=== PATIENT | female | born 1990 | race Two or more races ===

== ENCOUNTER 2018-10-12 20:53 | Emergency (ER) | payer OTHER ==
[~2018-10-12] VITALS: Ht 165.1 cm; Wt 63.5 kg
[2018-10-12 21:28] LABS: BILIRUBIN,URINE NEGATIVE (NEG); CLARITY,URINE CLEAR; COLOR,URINE YELLOW; NITRITE,URINE NEGATIVE (NEG); PROTEIN,URINE NEGATIVE (NEG-TRACE); UROBILINOGEN,URINE 0.2 mg/dL (0.2 mg/dL)
[2018-10-12 21:34] LABS: BASO % 1 % (0-3); EOS # 0.1 x10^3/uL (0.0-0.7); EOS % 1 % (0-3); HEMATOCRIT 37.4 % (36.0-47.0); HEMOGLOBIN 12.5 g/dL (12.0-15.5); LYMPH % 38 % (24-48); MEAN CORPUSCULAR HEMOGLOBIN 25 pg (25-35); MEAN CORPUSCULAR HGB CONC 34 g/dL (31-37); MEAN CORPUSCULAR VOLUME 73 fL (79-100); MONO # 0.5 x10^3/uL (0.0-1.1); MONO % 6 % (0-9); NEUT # 4.2 x10^3/uL (1.8-7.7); NEUT % 54 % (31-73); PLATELET COUNT 277 x10^3/uL (140-400); RED CELL DISTRIBUTION WIDTH 14.8 % (11.5-14.5); WHITE BLOOD COUNT 7.9 x10^3/uL (4.0-11.0)
[2018-10-12 21:34] LABS: BACTERIA,URINE MODERATE /HPF (0-FEW); RBC,URINE 0 /HPF (0-2); SQUAMOUS EPITHELIAL CELL,UR MOD /LPF
[2018-10-12 21:43] LABS: CALCIUM 9.1 mg/dL (8.5-10.1); CREATININE 0.9 mg/dL (0.6-1.0); GFR 74.6; POTASSIUM 3.7 mmol/L (3.5-5.1)
[2018-10-12 21:48] LABS: ALBUMIN 3.8 g/dL (3.4-5.0); ALBUMIN/GLOBULIN RATIO 0.9 (1.0-1.7); TOTAL BILIRUBIN 0.2 mg/dL (0.2-1.0); TOTAL PROTEIN 7.9 g/dL (6.4-8.2)
--- NOTE | 2018-10-12 22:35 | RAD ---
INDICATION: Facial numbness COMPARISON: MRI from April 24, 2015 TECHNIQUE: Axial CT images obtained through the head without intravenous contrast. One or more of the following individualized dose reduction techniques were utilized for this examination: 1. Automated exposure control; 2. Adjustment of the mA and/or kV according to patient size; 3. Use of iterative reconstruction technique. FINDINGS: No intracranial hemorrhage. No midline shift. Basal cisterns patent. Ventricles and sulci are unremarkable. No acute osseous abnormality. Orbits and paranasal sinuses unremarkable. IMPRESSION: 1. No acute intracranial hemorrhage. Electronically signed by: Braden Wade MD (10/12/2018 10:31 PM) [facility]
--- NOTE | 2018-10-12 22:52 | PHYS DOC ---
Past Medical History Past Medical History: Other Additional Past Medical Histor: ENDOMETRIOSIS Past Surgical History: Other Additional Past Surgical Histo: LAP SX FOR ENDOMETRIOSIS Alcohol Use: None Drug Use: None Adult General Chief Complaint Chief Complaint: NEURO SYMPTOMS/DEFICITS [facility] Patient is a 28-year-old female who presents with complaint of bilateral facial numbness and left arm numbness. Patient states that initially she had noticed some numbness to the left side of her face earlier this morning and then noted that the numbness that spread to the right side of her face as well. She later noticed numbness in her left arm and that it felt heavy. She states that at that time she called her primary care provider and he told her to come into the emergency room. Patient does indicate that she has had a history of neurological complaints including numbness in her toes and in the fingers. She states that she did have history of pain in her neck and thought that maybe she had injured her neck at some point. She denies any visual changes. She does state that she has had some intermittent severe migraines.[] Review of Systems Review of Systems Constitutional: Denies fever or chills [] Eyes: Denies change in visual acuity, redness, or eye pain [] Respiratory: Denies cough or shortness of breath [] Cardiovascular: No additional information not addressed in HPI [] GI: Denies abdominal pain, nausea, vomiting or diarrhea [] Integument: Denies rash or skin lesions [] Neurologic: Complains of headache without focal weakness. Patient does report sensory changes [] All other systems were reviewed and found to be within normal limits, except as documented in this note. Allergies Allergies Allergies Coded Allergies Type Severity Reaction Last Updated Verified codeine Allergy Intermediate RASH 08/23/15 Yes Physical Exam Physical Exam Constitutional: Well developed, well nourished, no acute distress, non-toxic appearance. [] HENT: Normocephalic, atraumatic, bilateral external ears normal, oropharynx moist, no oral exudates, nose normal. [] Eyes: PERRLA, EOMI, conjunctiva normal, no discharge. [] Neck: Normal range of motion, no tenderness, supple, no stridor. [] Cardiovascular: Regular rate and rhythm[] Lungs & Thorax: Bilateral breath sounds clear to auscultation [] Abdomen: Bowel sounds normal, soft, no tenderness. [] Skin: Warm, dry, no erythema, no rash. [] Extremities: No tenderness, no cyanosis, no clubbing, ROM intact, no edema. [] Neurologic: Alert and oriented X 3, cranial nerves II through XII are intact normal motor function. There is loss of fine touch to both sides of face with sparing of the forehead along with left arm. No pronator drift is noted on exam. [] Current Patient Data Lab Values Laboratory Tests Test 10/12/18 21:00 10/12/18 21:04 10/12/18 21:30 Urine Collection Type Unknown Urine Color Yellow Urine Clarity Clear Urine pH 6.0 Urine Specific [place] 1.025 Urine Protein Negative mg/dL (NEG-TRACE) Urine Glucose (UA) Negative mg/dL (NEG) Urine Ketones (Stick) Negative mg/dL (NEG) Urine Blood Negative (NEG) Urine Nitrite Negative (NEG) Urine Bilirubin Negative (NEG) Urine Urobilinogen Dipstick 0.2 mg/dL (0.2 mg/dL) Urine Leukocyte Esterase Negative (NEG) Urine RBC 0 /HPF (0-2) Urine WBC 1-4 /HPF (0-4) Urine Squamous Epithelial Cells Mod /LPF Urine Bacteria Moderate /HPF (0-FEW) Urine Mucus Mod /LPF POC Urine HCG, Qualitative Hcg negative (Negative) White Blood Count 7.9 x10^3/uL (4.0-11.0) Red Blood Count 5.10 x10^6/uL (3.50-5.40) Hemoglobin 12.5 g/dL (12.0-15.5) Hematocrit 37.4 % (36.0-47.0) Mean Corpuscular Volume 73 fL (79-100) L Mean Corpuscular Hemoglobin 25 pg (25-35) Mean Corpuscular Hemoglobin Concent 34 g/dL (31-37) Red Cell Distribution Width 14.8 % (11.5-14.5) H Platelet Count 277 x10^3/uL (140-400) Neutrophils (%) (Auto) 54 % (31-73) Lymphocytes (%) (Auto) 38 % (24-48) Monocytes (%) (Auto) 6 % (0-9) Eosinophils (%) (Auto) 1 % (0-3) Basophils (%) (Auto) 1 % (0-3) Neutrophils # (Auto) 4.2 x10^3/uL (1.8-7.7) Lymphocytes # (Auto) 3.0 x10^3/uL (1.0-4.8) Monocytes # (Auto) 0.5 x10^3/uL (0.0-1.1) Eosinophils # (Auto) 0.1 x10^3/uL (0.0-0.7) Basophils # (Auto) 0.0 x10^3/uL (0.0-0.2) Sodium Level 141 mmol/L (136-145) Potassium Level 3.7 mmol/L (3.5-5.1) Chloride Level 104 mmol/L (98-107) Carbon Dioxide Level 27 mmol/L (21-32) Anion Gap 10 (6-14) Blood Urea Nitrogen 10 mg/dL (7-20) Creatinine 0.9 mg/dL (0.6-1.0) Estimated GFR (Cockcroft-Gault) 74.6 BUN/Creatinine Ratio 11 (6-20) Glucose Level 96 mg/dL (70-99) Calcium Level 9.1 mg/dL (8.5-10.1) Magnesium Level 2.0 mg/dL (1.8-2.4) Total Bilirubin 0.2 mg/dL (0.2-1.0) Aspartate Amino Transferase (AST) 13 U/L (15-37) L Alanine Aminotransferase (ALT) 24 U/L (14-59) Alkaline Phosphatase 83 U/L (46-116) Total Protein 7.9 g/dL (6.4-8.2) Albumin 3.8 g/dL (3.4-5.0) Albumin/Globulin Ratio 0.9 (1.0-1.7) L Thyroid Stimulating Hormone (TSH) 1.844 uIU/mL (0.358-3.74) Laboratory Tests 10/12/18 21:30 Laboratory Tests 10/12/18 21:30 EKG EKG [] Radiology/Procedures Radiology/Procedures [] Impressions: PROCEDURE: CT HEAD WO CONTRAST INDICATION: Facial numbness COMPARISON: MRI from April 24, 2015 TECHNIQUE: Axial CT images obtained through the head without intravenous contrast. One or more of the following individualized dose reduction techniques were utilized for this examination: 1. Automated exposure control; 2. Adjustment of the mA and/or kV according to patient size; 3. Use of iterative reconstruction technique. FINDINGS: No intracranial hemorrhage. No midline shift. Basal cisterns patent. Ventricles and sulci are unremarkable. No acute osseous abnormality. Orbits and paranasal sinuses unremarkable. IMPRESSION: 1. No acute intracranial hemorrhage. Electronically signed by: Braden Wade MD (10/12/2018 10:31 PM) [facility] Course & Med Decision Making Course & Med Decision Making Pertinent Labs and Imaging studies reviewed. (See chart for details) [] Dragon Disclaimer Dragon Disclaimer This electronic medical record was generated, in whole or in part, using a voice recognition dictation system. Departure Departure Impression: Primary Impression: Paresthesia Additional Impression: Facial numbness Disposition: 01 HOME, SELF-CARE Condition: STABLE Referrals: MARGO SALDIVAR MD (PCP) Patient Instructions: Paresthesia Additional Instructions: Call to schedule follow-up appointment with Dr. Saldivar. I would recommend further evaluation with MRI. Return to emergency room if you have acute worsening of symptoms. Problem Qualifiers JASON ROSS Jr. DO Oct 12, 2018 22:52
[2018-10-12 23:00] VITALS: BP 100/68
--- NOTE | 2018-10-13 07:16 | EKG ---
[facility] [address] [place] [address] Test Date: 2018-10-12 Test Time: 21:07:18 Pat Name: DEEPAK HANNA Department: Room: Gender: F Gun [employer]: : 1990 Requested By: JASON ROSS Order Number: [id number] Reading MD: Measurements Intervals [place] Rate: 98 P: 74 UT: 124 QRS: 68 QRSD: 84 T: 23 QT: 350 QTc: 454 Interpretive Statements SINUS RHYTHM NORMAL ECG No previous ECG available for comparison
== END 2018-10-12 23:25 | disposition home or self-care (01) ==
LOC: ER 20:53
DX: R20.2 Paresthesia of skin (principal); R20.0 Anesthesia of skin; G43.909 Migraine, unspecified, not intractable, without status migrainosus; Z88.5 Allergy status to narcotic agent
CPT/HCPCS: 36415; 70450; 80053; 81001; 81025; 82962; 83735; 84443; 85025; 87086; 93005; 99285

== ENCOUNTER → 2018-10-31 | Outpatient (CLI) | payer OTHER ==
[2018-10-12 23:00] VITALS: BP 100/68
[~2018-10-31] MED LIST: CIME400T PO; ERGO500027 PO; FLUT9.9S NS; GADOTERATE 7.5 MMOL/15ML VIAL. IVP ONE; HYDR25TA PO; ONDA4TAB11 PO
--- NOTE | 2018-10-31 15:37 | KCIC ---
MRI of the Brain without and with Contrast 10/31/2018 Clinical History: Episodes of facial numbness extremity heaviness.. Technique: Unenhanced T1-weighted sagittal and axial and FLAIR, T2-weighted, gradient echo and diffusion-weighted axial images of the brain were obtained. After the intravenous administration of 12 cc of Dotarem, enhanced T1-weighted axial and coronal images of the brain were obtained. Findings: Comparison study is dated 05/23/2015. The ventricles and sulci are within normal limits in size and configuration. No area of abnormal signal intensity is seen involving the brain parenchyma. No abnormal area of contrast enhancement is seen. No extra-axial fluid collection is noted. There is no MRI evidence of acute ischemia/infarction. Mild mucosal thickening in seen scattered throughout the paranasal sinuses. There are small bilateral mastoid effusions. Normal flow voids are seen within the major vascular structures surrounding the brain parenchyma. Impression: 1. Negative MRI of the brain. 2. Mild paranasal sinus and mastoid disease. Electronically signed by: Arnulfo An MD (10/31/2018 3:35 PM) [id number]
== END | disposition home or self-care (01) ==
LOC: KCIC MRI 12:39
PROVIDERS: ATTEND Family Medicine
DX: J34.89 Other specified disorders of nose and nasal sinuses (principal); H74.8X3 Other specified disorders of middle ear and mastoid, bilateral; I67.841 Reversible cerebrovascular vasoconstriction syndrome
CPT/HCPCS: 70553; A9575